=== PATIENT | female | born 1960 | race Caucasian/White ===

== ENCOUNTER 2019-06-07 22:08 | Observation (INO) ==
[2019-06-07] MEDS ORDERED: NALOXONE 0.4 MG/ML VIAL ONE (22:32)
[2019-06-07] MEDS ORDERED: NALOXONE 0.4 MG/ML VIAL IV STA (22:38)
[2019-06-07] MEDS ORDERED: THIAMINE 200 MG/2 ML VIAL IV STA (22:38)
[2019-06-07 22:45] LABS: Basophils # 0.1 10*3/uL (0.0-0.2); Basophils % 0.5 % (0.0-0.8); Eosinophils % 0.1 % (0.00-10.9); Hematocrit 32.1 VOL% (35.7-47.0); Hemoglobin 9.9 GM/DL (12.0-16.0); Immature Granulocytes % 0.7 %; Immature Granulocytes Absolute 0.08 #; Lymphocytes # 0.9 10*3/uL (1.4-4.0); Lymphocytes % 8.4 % (21.3-54.2); Mean Corpuscular HGB Conc 30.8 GM/DL (32-36); Mean Corpuscular Volume 102.9 FL (87-102); Mean Platelet Volume 9.7 FL (9.6-12.0); Monocytes % 8.5 % (1.7-12.7); Neutrophils % 81.8 % (38.7-73.9); Platelet Count 277 T/CUMM (130-400); Red Blood Count 3.12 MC/CUMM (3.8-5.5); Red Cell Distribution Width 13.5 % (9.3-17.3); White Blood Count 10.9 T/CUMM (4-12)
[2019-06-07 22:50] LABS: INR 1.1; PT Patient Result 12.4 SECS (9.6-12.2)
[2019-06-07 22:56] LABS: Acetaminophen < 2.0 UG/ML (10-30); Salicylate 2.9 MG/DL (2.8-20)
[2019-06-07 23:15] LABS: Alanine Aminotransferase 13 U/L (13-56); Alkaline Phosphatase 85 U/L (45-117); Aspartate Amino Transferase 15 U/L (0-37); Bilirubin,Total < 0.39 MG/DL (0.2-1.0); Blood Urea Nitrogen 10 MG/DL (7-18); Calcium 6.8 MG/DL (8.5-10.1); Estimated Glom Filtration Rate 92 ML/MIN; Glucose 141 MG/DL (74-106); Osmolality,Calculated 266.4 MOS/KG (273-304); Total Protein 6.1 G/DL (6.4-8.3)
[2019-06-08 01:13] LABS: Apearance,Urine CLEAR (Clear); Bacteria,Urine Occasional /HPF (Few); Bilirubin,Urine Negative (Negative); Blood, Urine Negative (Negative); Glucose,Urine (UA) Negative (Negative); Ketones,Urine Negative (Negative); Mucus,Urine Occasional /LPF (Occasional); Nitrite,Urine Negative (Negative); Protein,Urine Negative; RBC,Urine <1 /HPF (0-4); Squamous Epithelial Cell,Urine Occasional /HPF (0-10); Urine Color Straw (Yellow); Urine Specific Gravity 1.006 (1.001-1.035); Urine Urobilinogen < 2.0 EU/DL (0.2-1.0); WBC,Urine <1 /HPF (0-6)
[2019-06-08 01:25] LABS: Barbiturates Screen,Urine Negative (Negative); Benzodiazepines Screen,Urine Negative (Negative); Cannabinoid Screen,Urine Negative (Negative); Opiate Screen,Urine Positive (Negative); Phencyclidine Screen,Urine Negative (Negative)
[2019-06-08] MEDS ORDERED: ONDANSETRON 4 MG/2 ML VIAL IV PRN (03:29)
[2019-06-08] MEDS ORDERED: NICOTINE 21 MG/24 HR PATCH TRANSDERM PRN (03:29)
[2019-06-08] MEDS: SODIUM CHLORIDE 0.9% 1,000 ML IV SCH ×3 (05:47→22:07)
[2019-06-08] MEDS: ACETAMINOPHEN 325 MG TABLET PO PRN (10:41)
[2019-06-09 05:06] LABS: Basophils # 0.1 10*3/uL (0.0-0.2); Basophils % 0.9 % (0.0-0.8); Eosinophils % 0.4 % (0.00-10.9); Hematocrit 29.4 VOL% (35.7-47.0); Hemoglobin 9.5 GM/DL (12.0-16.0); Immature Granulocytes % 0.5 %; Immature Granulocytes Absolute 0.04 #; Lymphocytes % 12.8 % (21.3-54.2); Mean Corpuscular HGB Conc 32.3 GM/DL (32-36); Mean Corpuscular Volume 96.4 FL (87-102); Mean Platelet Volume 10.2 FL (9.6-12.0); Monocytes % 13.3 % (1.7-12.7); Neutrophils % 72.1 % (38.7-73.9); Red Blood Count 3.05 MC/CUMM (3.8-5.5); Red Cell Distribution Width 13.4 % (9.3-17.3); White Blood Count 8.2 T/CUMM (4-12)
[2019-06-09 05:07] LABS: Platelet Count 197 T/CUMM (130-400)
[2019-06-09] MEDS: SODIUM CHLORIDE 0.9% 1,000 ML IV SCH (05:27)
[2019-06-09] MEDS: ACETAMINOPHEN 325 MG TABLET PO PRN (05:29)
[2019-06-09 05:30] LABS: Osmolality,Calculated 276.4 MOS/KG (273-304)
[2019-06-09 15:56] VITALS: BP 122/84
== END 2019-06-09 16:24 | disposition hospice, home (50) ==
LOC: EDUNIT# → N.EDINP 22:08 → N.ED 22:08 → SUATTDRO 06-08 03:29 → N.5E 06-08 04:11
PROVIDERS: ADMIT Internal Medicine Cardiovascular Disease; ATTEND Internal Medicine Nephrology

== ENCOUNTER 2021-09-17 17:02 | Inpatient (IN) ==
[2021-09-17 17:51] LABS: Arterial Base Excess iSTAT 5 MMOL/L (-2.5-2.5); Arterial Bicarbonate iSTAT 30.6 MMOL/L (20-26); Arterial O2 Saturation iSTAT 99 % (95-100); Arterial PCO2 iSTAT 47 MM HG (35-48); Arterial PO2 iSTAT 151 MM HG (80-95); Arterial Total CO2 iSTAT 32 MMO/L (23-27); Arterial pH iSTAT 7.422 (7.35-7.45)
[2021-09-17 18:35] LABS: Basophils # 0.1 10*3/uL (0.0-0.2); Basophils % 1.1 % (0.0-0.8); Eosinophils % 0.4 % (0.00-10.9); Hematocrit 37.4 VOL% (35.7-47.0); Hemoglobin 12.2 GM/DL (12.0-16.0); Immature Granulocytes % 0.3 %; Immature Granulocytes Absolute 0.03 #; Lymphocytes # 0.7 10*3/uL (1.4-4.0); Lymphocytes % 7.8 % (21.3-54.2); Mean Corpuscular HGB Conc 32.6 GM/DL (32-36); Mean Corpuscular Volume 97.7 FL (87-102); Mean Platelet Volume 10.5 FL (9.6-12.0); Monocytes % 6.5 % (1.7-12.7); Neutrophils % 83.9 % (38.7-73.9); Platelet Count 254 T/CUMM (130-400); Red Blood Count 3.83 MC/CUMM (3.8-5.5); White Blood Count 9.1 T/CUMM (4-12)
[2021-09-17 18:54] LABS: Barbiturates Screen,Urine Negative (Negative); Benzodiazepines Screen,Urine Negative (Negative); Cannabinoid Screen,Urine Negative (Negative); Opiate Screen,Urine Negative (Negative); Phencyclidine Screen,Urine Negative (Negative)
[2021-09-17 18:56] LABS: Albumin 3.9 G/DL (3.4-5.0); Bilirubin,Total 0.6 MG/DL (0.20-1.00); Calcium 8.3 MG/DL (8.5-10.1); Osmolality,Calculated 258.8 MOS/KG (273-304); Potassium 2.9 MMOL/L (3.5-5.1); Total Protein 7.5 G/DL (6.4-8.2)
[2021-09-17 18:58] LABS: RBC,Urine <1 /HPF (0-4)
[2021-09-17 19:00] LABS: Bilirubin,Urine Negative (Negative); Blood, Urine Trace mg/dL (Negative); Glucose,Urine (UA) Negative (Negative); Ketones,Urine Negative (Negative); Nitrite,Urine Negative (Negative); Protein,Urine Negative (Negative); Urine Appearance Clear (Clear); Urine Color Light Yellow (Yellow); Urine Urobilinogen 0.2 eU/dL (<2.0)
[2021-09-17] MEDS ORDERED: GLUCAGON 1 MG VIAL IM PRN (20:13)
[2021-09-17] MEDS ORDERED: DOCUSATE SODIUM 100 MG CAPSULE PO PRN (20:18)
[2021-09-17] MEDS ORDERED: ACETAMINOPHEN 325 MG TABLET PO PRN (20:18)
[2021-09-17] MEDS ORDERED: POTASSIUM CHLORIDE 20 MEQ TABLET PO PRN (20:25)
[2021-09-17] MEDS ORDERED: DEXTROSE 10% 250 ML BAG IV PRN (20:25)
[2021-09-17] MEDS: SODIUM CHLORIDE 0.9% 1,000 ML IV SCH (20:47)
[2021-09-17] MEDS ORDERED: ENOXAPARIN 40 MG/0.4 ML SYRINGE SUBCUT SCH (21:00)
[2021-09-17] MEDS ORDERED: THIAMINE INJ 100 MG, FOLIC ACID INJ 1 MG, MULTIVITAMIN INJ 10 ML in SODIUM CHLORIDE 0.9... IV ONE (21:00)
[2021-09-17] MEDS ORDERED: PNEUMOCOCCAL VACCINE (23 VALENT) 0.5 ML VIAL IM ONE (22:02)
[2021-09-17] MEDS: POTASSIUM CHLORIDE RIDER 10 MEQ/100 ML PREMIX IV PRN ×2 (22:45→23:59)
[2021-09-17] MEDS ORDERED: NICOTINE 14 MG/24 HR PATCH TRANSDERM ONE (22:53)
[2021-09-18] MEDS: VANCOMYCIN INJ 750 MG in SODIUM CHLORIDE 0.9% 250 ML IV SCH ×4 (01:10→22:06)
[2021-09-18] MEDS: POTASSIUM CHLORIDE RIDER 10 MEQ/100 ML PREMIX IV PRN ×3 (01:30→04:36)
[2021-09-18 06:12] LABS: Basophils # 0.1 10*3/uL (0.0-0.2); Eosinophils # 0.1 10*3/uL (0.0-0.87); Eosinophils % 2.1 % (0.00-10.9); Hemoglobin 10.3 GM/DL (12.0-16.0); Immature Granulocytes % 0.2 %; Immature Granulocytes Absolute 0.01 #; Lymphocytes # 1.1 10*3/uL (1.4-4.0); Lymphocytes % 19.2 % (21.3-54.2); Mean Corpuscular HGB Conc 32.2 GM/DL (32-36); Mean Corpuscular Volume 99.4 FL (87-102); Mean Platelet Volume 10.2 FL (9.6-12.0); Monocytes % 12.3 % (1.7-12.7); Neutrophils % 65.2 % (38.7-73.9); Platelet Count 226 T/CUMM (130-400); Red Blood Count 3.22 MC/CUMM (3.8-5.5); Red Cell Distribution Width 16.2 % (9.3-17.3); White Blood Count 5.8 T/CUMM (4-12)
[2021-09-18 06:32] LABS: Calcium 8.1 MG/DL (8.5-10.1); Osmolality,Calculated 271.8 MOS/KG (273-304); Potassium 3.8 MMOL/L (3.5-5.1)
[2021-09-18] MEDS ORDERED: MORPHINE 2 MG/1 ML SYRINGE IV PRN (07:27)
[2021-09-18] MEDS ORDERED: HYDROmorphone 1 MG/1 ML SYRINGE IV PRN (07:40)
[2021-09-18] MEDS ORDERED: MEPERIDINE 25 MG/1 ML VIAL IV PRN (07:40)
[2021-09-18] MEDS ORDERED: diphenhydrAMINE 50 MG/1 ML VIAL IV PRN (07:40)
[2021-09-18] MEDS ORDERED: PROMETHAZINE INJ 25 MG in SODIUM CHLORIDE 0.9% 50 ML IV PRN (07:40)
[2021-09-18] MEDS ORDERED: ONDANSETRON 4 MG/2 ML VIAL IV PRN (07:40)
[2021-09-18] MEDS ORDERED: ALBUTEROL/IPRATROPIUM 3 ML NEB RESP TX PRN (07:57)
[2021-09-18] MEDS ORDERED: LIDOCAINE 2% 5 ML VIAL ONE (08:37)
[2021-09-18] MEDS ORDERED: ROCURONIUM 50 MG/5 ML VIAL IV ONE (08:37)
[2021-09-18] MEDS ORDERED: propofoL 200 MG/20 ML VIAL IV ONE (08:37)
[2021-09-18] MEDS ORDERED: fentaNYL 100 MCG/2 ML VIAL ONE (08:37)
[2021-09-18] MEDS ORDERED: MAGNESIUM HYDROXIDE SUSP 30 ML UDCUP PO PRN (09:15)
[2021-09-18] MEDS ORDERED: TRANEXAMIC ACID 1,000 MG/10 ML VIAL ONE (09:22)
[2021-09-18] MEDS ORDERED: PHENYLEPHRINE 1 MG/10 ML SYRINGE IV ONE (09:22)
[2021-09-18] MEDS ORDERED: ONDANSETRON 4 MG/2 ML VIAL ONE (09:35)
[2021-09-18] MEDS ORDERED: NEOSTIGMINE 10 MG/10 ML VIAL ONE (09:37)
[2021-09-18] MEDS ORDERED: GLYCOPYRROLATE 0.4 MG/2 ML VIAL ONE (09:37)
[2021-09-18] MEDS ORDERED: ACETAMINOPHEN INJ 1,000 MG/100 ML VIAL IV ONE (09:41)
[2021-09-18] MEDS ORDERED: BACITRACIN OINT 0.9 GM PACK TOP ONE (09:44)
[2021-09-18] MEDS ORDERED: SEVOFLURANE 1 UNIT/15 MINUTE INH ONE (10:15)
[2021-09-18] MEDS ORDERED: ROPIVACAINE 0.5% 30 ML VIAL ONE (10:28)
[2021-09-18] MEDS ORDERED: LABETALOL 20 MG/4 ML SYRINGE IV ONE (10:53)
[2021-09-18] MEDS: SODIUM CHLORIDE 0.9% 1,000 ML IV SCH ×3 (11:04→20:48)
[2021-09-18] MEDS: KETOROLAC 30 MG/1 ML VIAL IV PRN ×2 (13:53→22:10)
[2021-09-18] MEDS: MORPHINE 2 MG/1 ML SYRINGE IV PRN (16:24)
[2021-09-18 16:36] LABS: Folate 18.34 NG/ML (5.38-24.0)
[2021-09-18] MEDS: POLYETHYLENE GLYCOL POWDER 17 GM PACK PO SCH (20:31)
[2021-09-18] MEDS: tiZANidine 4 MG TABLET PO SCH (20:32)
[2021-09-18] MEDS: GABAPENTIN 100 MG CAPSULE PO SCH (20:32)
[2021-09-18] MEDS: DOCUSATE SODIUM 100 MG CAPSULE PO SCH (20:32)
[2021-09-18] MEDS: traZODone 50 MG TABLET PO SCH (20:32)
[2021-09-18] MEDS: clonazePAM 0.5 MG TABLET PO SCH (20:33)
[2021-09-19] MEDS: FONDAPARINUX 2.5 MG/0.5 ML SYRINGE SUBCUT SCH ×2 (03:07→21:39)
[2021-09-19 05:07] LABS: Calcium 7.7 MG/DL (8.5-10.1); Osmolality,Calculated 277.3 MOS/KG (273-304); Potassium 3.5 MMOL/L (3.5-5.1)
[2021-09-19 05:11] LABS: Basophils % 0.7 % (0.0-0.8); Eosinophils # 0.2 10*3/uL (0.0-0.87); Eosinophils % 4.2 % (0.00-10.9); Hematocrit 25.8 VOL% (35.7-47.0); Hemoglobin 7.9 GM/DL (12.0-16.0); Immature Granulocytes % 0.2 %; Immature Granulocytes Absolute 0.01 #; Lymphocytes # 0.7 10*3/uL (1.4-4.0); Mean Corpuscular HGB Conc 30.6 GM/DL (32-36); Mean Corpuscular Volume 105.7 FL (87-102); Mean Platelet Volume 10.8 FL (9.6-12.0); Monocytes % 9.9 % (1.7-12.7); Platelet Count 167 T/CUMM (130-400); Red Blood Count 2.44 MC/CUMM (3.8-5.5); Red Cell Distribution Width 16.9 % (9.3-17.3); White Blood Count 4.1 T/CUMM (4-12)
[2021-09-19] MEDS: ESCITALOPRAM 10 MG TABLET PO SCH (08:04)
[2021-09-19] MEDS: SODIUM CHLORIDE 0.9% 1,000 ML IV SCH ×2 (08:04→12:41)
[2021-09-19] MEDS: LINACLOTIDE 145 MCG CAPSULE PO SCH (08:04)
[2021-09-19] MEDS: DOCUSATE SODIUM 100 MG CAPSULE PO SCH ×2 (08:04→21:34)
[2021-09-19] MEDS: GABAPENTIN 100 MG CAPSULE PO SCH ×2 (08:04→21:34)
[2021-09-19] MEDS: clonazePAM 0.5 MG TABLET PO SCH ×2 (08:04→21:34)
[2021-09-19] MEDS: tiZANidine 4 MG TABLET PO SCH ×3 (08:04→21:35)
[2021-09-19] MEDS: POLYETHYLENE GLYCOL POWDER 17 GM PACK PO SCH ×2 (08:05→21:37)
[2021-09-19] MEDS: MORPHINE 2 MG/1 ML SYRINGE IV PRN (11:26)
[2021-09-19] MEDS: VANCOMYCIN INJ 750 MG in SODIUM CHLORIDE 0.9% 250 ML IV SCH ×2 (11:26→21:38)
[2021-09-19] MEDS: traZODone 50 MG TABLET PO SCH (21:35)
[2021-09-20 04:39] LABS: Basophils % 0.6 % (0.0-0.8); Eosinophils # 0.3 10*3/uL (0.0-0.87); Eosinophils % 5.3 % (0.00-10.9); Hematocrit 25.3 VOL% (35.7-47.0); Hemoglobin 7.6 GM/DL (12.0-16.0); Immature Granulocytes % 0.6 %; Immature Granulocytes Absolute 0.03 #; Lymphocytes # 0.8 10*3/uL (1.4-4.0); Mean Corpuscular Volume 107.2 FL (87-102); Mean Platelet Volume 10.6 FL (9.6-12.0); Monocytes % 12.2 % (1.7-12.7); Neutrophils % 66.3 % (38.7-73.9); Platelet Count 169 T/CUMM (130-400); Red Blood Count 2.36 MC/CUMM (3.8-5.5); White Blood Count 5.3 T/CUMM (4-12)
[2021-09-20 04:55] LABS: Calcium 7.7 MG/DL (8.5-10.1); Osmolality,Calculated 279.3 MOS/KG (273-304); Potassium 3.8 MMOL/L (3.5-5.1)
[2021-09-20] MEDS: SODIUM CHLORIDE 0.9% 1,000 ML IV SCH ×4 (05:04→20:00)
[2021-09-20] MEDS ORDERED: SODIUM CHLORIDE 0.9% 1,000 ML IV PRN (07:13)
[2021-09-20] MEDS ORDERED: FUROSEMIDE 40 MG/4 ML VIAL IV PRN (07:13)
[2021-09-20] MEDS ORDERED: CELECOXIB 200 MG CAPSULE PO PRN (07:14)
[2021-09-20] MEDS: ESCITALOPRAM 10 MG TABLET PO SCH (08:38)
[2021-09-20] MEDS: GABAPENTIN 100 MG CAPSULE PO SCH ×2 (08:38→21:14)
[2021-09-20] MEDS: DOCUSATE SODIUM 100 MG CAPSULE PO SCH ×2 (08:39→21:14)
[2021-09-20] MEDS: LINACLOTIDE 145 MCG CAPSULE PO SCH (08:39)
[2021-09-20] MEDS: clonazePAM 0.5 MG TABLET PO SCH ×2 (08:39→21:13)
[2021-09-20] MEDS: POLYETHYLENE GLYCOL POWDER 17 GM PACK PO SCH ×2 (08:39→21:15)
[2021-09-20] MEDS: tiZANidine 4 MG TABLET PO SCH ×3 (08:39→21:14)
[2021-09-20] MEDS: FERROUS SULFATE 325 MG TABLET PO SCH ×2 (08:40→16:15)
[2021-09-20] MEDS: VANCOMYCIN INJ 750 MG in SODIUM CHLORIDE 0.9% 250 ML IV SCH (15:33)
[2021-09-20 16:41] LABS: Hematocrit 34.8 VOL% (35.7-47.0); Hemoglobin 10.5 GM/DL (12.0-16.0)
[2021-09-20] MEDS: FONDAPARINUX 2.5 MG/0.5 ML SYRINGE SUBCUT SCH (21:13)
[2021-09-20] MEDS: traZODone 50 MG TABLET PO SCH (21:14)
[2021-09-21] MEDS: SODIUM CHLORIDE 0.9% 1,000 ML IV SCH (04:58)
[2021-09-21] MEDS: FERROUS SULFATE 325 MG TABLET PO SCH ×2 (08:46→17:00)
[2021-09-21] MEDS: tiZANidine 4 MG TABLET PO SCH ×3 (08:46→21:54)
[2021-09-21] MEDS: clonazePAM 0.5 MG TABLET PO SCH ×2 (08:46→21:54)
[2021-09-21] MEDS: DOCUSATE SODIUM 100 MG CAPSULE PO SCH ×2 (08:46→21:54)
[2021-09-21] MEDS: GABAPENTIN 100 MG CAPSULE PO SCH ×2 (08:46→21:54)
[2021-09-21] MEDS: POLYETHYLENE GLYCOL POWDER 17 GM PACK PO SCH ×2 (08:46→21:55)
[2021-09-21] MEDS: LINACLOTIDE 145 MCG CAPSULE PO SCH (08:47)
[2021-09-21] MEDS: ESCITALOPRAM 10 MG TABLET PO SCH (08:47)
[2021-09-21] MEDS: FONDAPARINUX 2.5 MG/0.5 ML SYRINGE SUBCUT SCH (21:53)
[2021-09-21] MEDS: traZODone 50 MG TABLET PO SCH (21:54)
[2021-09-22] MEDS: clonazePAM 0.5 MG TABLET PO SCH (08:45)
[2021-09-22] MEDS: GABAPENTIN 100 MG CAPSULE PO SCH (08:45)
[2021-09-22] MEDS: POLYETHYLENE GLYCOL POWDER 17 GM PACK PO SCH (08:45)
[2021-09-22] MEDS: tiZANidine 4 MG TABLET PO SCH (08:45)
[2021-09-22] MEDS: DOCUSATE SODIUM 100 MG CAPSULE PO SCH (08:45)
[2021-09-22] MEDS: ESCITALOPRAM 10 MG TABLET PO SCH (08:45)
[2021-09-22] MEDS: FERROUS SULFATE 325 MG TABLET PO SCH (08:45)
[2021-09-22] MEDS: LINACLOTIDE 145 MCG CAPSULE PO SCH (08:46)
[2021-09-22 11:43] VITALS: BP 99/63
== END 2021-09-22 14:15 | disposition home health service (06) | DRG 522 ==
LOC: EDUNIT# → EDBD → N.ED 17:02 → N.EDINP 20:10 → SUATTDRO 20:10 → N.EDINP 21:26 → N.3E 22:14
PROVIDERS: ADMIT Hospitalist; ATTEND Internal Medicine Geriatric Medicine